=== PATIENT | male | born 1995 | race Hispanic/Latino ===

== ENCOUNTER 2017-02-02 23:57 | Emergency (ER) | payer BC ==
--- NOTE | 2017-02-03 01:08 | C.PDOC ---
History Of Present Illness 21 year old male presents to the ED with complaints of his ear feeling clogged, sore throat, and nausea, for the past few days. Patient states he was seen by his PMD and was given Augmentin and denies fever, chills, vomiting, or any other complaints at this time. Time Seen by Provider: 02/03/17 01:08 Chief Complaint (Nursing): Cough, Cold, Congestion History Per: Patient History/Exam Limitations: no limitations Onset/Duration Of Symptoms: Days Current Symptoms Are (Timing): Still Present Sick Contacts (Context): None Associated Symptoms: Sore Throat. denies: Fever, Cough Ear Symptoms: Bilateral: Ear Fullness Severity: Mild Past Medical History Reviewed: Historical Data, Nursing Documentation, Vital Signs Vital Signs: Last Vital Signs Temp 98.3 F 02/03/17 00:04 Pulse 95 H 02/03/17 00:04 Resp 14 02/03/17 01:30 BP 120/80 02/03/17 01:30 Pulse Ox 99 02/03/17 03:49 - Medical History PMH: No Chronic Diseases Family History: States: Unknown Family Hx - Social History Hx Alcohol Use: Yes Hx Substance Use: Yes - Immunization History Hx Influenza Vaccination: No Review Of Systems Constitutional: Negative for: Fever, Chills ENT: Positive for: Throat Pain, Other (+Clogged ears). Negative for: Ear Discharge Cardiovascular: Negative for: Chest Pain, Palpitations Respiratory: Negative for: Cough, Shortness of Breath Gastrointestinal: Positive for: Nausea. Negative for: Vomiting, Abdominal Pain Musculoskeletal: Negative for: Neck Pain, Back Pain Neurological: Negative for: Weakness, Numbness Physical Exam - Physical Exam Appears: Non-toxic, No Acute Distress Skin: Warm, Dry Head: Atraumatic, Normacephalic, Other (+Frontal sinus pressure) Eye(s): bilateral: Normal Inspection Ear(s): Bilateral: Other (+Bilateral wax to ears) Oral Mucosa: Moist Throat: Erythema, No Exudate, Other (+Swelling to bilateral tonsils) Neck: Supple Chest: Symmetrical Cardiovascular: Rhythm Regular Respiratory: No Accessory Muscle Use, No Rales, No Rhonchi, No Wheezing Extremity: Normal ROM Neurological/Psych: Oriented x3, Normal Speech, Normal Cognition ED Course And Treatment - Laboratory Results Result Diagrams: 02/03/17 01:35 02/03/17 01:35 O2 Sat by Pulse Oximetry: 99 (Room air) Pulse Ox Interpretation: Normal - CT Scan/US Ct Orbits/Facials w/o contrast Other Rad Studies (CT/US): Read By Radiologist, Radiology Report Reviewed CT/US Interpretation: FINDINGS: Orbits: Unremarkable. Sinuses: Unremarkable. No air-fluid levels. Bones/joints: No acute fracture. Soft tissues: Unremarkable. IMPRESSION: Normal orbits CT. Progress Note: CT Orbits/Facials w/o contrast, Blood work, and Flu swab ordered and reviewed. Patient treated with Solu-Medrol, Toradol, and IV fluids. Disposition Counseled Patient/Family Regarding: Studies Performed, Diagnosis, Need For Followup - Disposition Referrals: Maggi Blakely MD [Staff Provider] - Disposition: HOME/ ROUTINE Disposition Time: 01:08 Condition: FAIR Instructions: Pharyngitis (ED), Cerumen Impaction (ED) - Clinical Impression Clinical Impression: Pharyngitis, Cerumen impaction - Scribe Statement The provider has reviewed the documentation as recorded by the Scribe Deanna Desai. Provider Attestation: All medical record entries made by the Scribe were at my direction and personally dictated by me. I have reviewed the chart and agree that the record accurately reflects my personal performance of the history, physical exam, medical decision making, and the department course for this patient. I have also personally directed, reviewed, and agree with the discharge instructions and disposition.
[2017-02-03] MEDS ORDERED: Sodium Chloride 0.9% 1,000 ML IV ONE (01:14)
[2017-02-03] MEDS ORDERED: Sodium Chloride 0.9% 1,000 ML ONE (01:35)
[2017-02-03 01:38] LABS: BASO % 0.5 % (0.0-2.0); HEMATOCRIT 43.7 % (35.0-51.0); LYMPH # 0.8 K/uL (1.0-4.3); LYMPH % 28.8 % (20.0-40.0); MEAN CELL VOLUME 88.3 fL (80.0-94.0); MEAN CORPUSCULAR HEMOGLOBIN 29.7 pg (27.0-31.0); MEAN CORPUSCULAR HGB CONC 33.7 g/dL (33.0-37.0); MEAN PLATELET VOLUME 10.1 fL (7.2-11.7); MONO # 0.4 K/uL (0.0-0.8); MONO % 14.7 % (0.0-10.0); NRBC % 0.1 % (0.0-2.0); RED CELL DISTRIBUTION WIDTH 12.2 % (11.5-14.5); WHITE BLOOD COUNT 2.9 K/uL (4.8-10.8)
[2017-02-03 01:45] LABS: CHLORIDE 96 mmol/L (98-107)
[2017-02-03 01:46] LABS: POTASSIUM 4.5 mmol/L (3.6-5.2); SODIUM 138 mmol/L (132-148)
[2017-02-03 01:48] LABS: BILIRUBIN,TOTAL 1.1 mg/dL (0.2-1.3); CARBON DIOXIDE 29 mmol/L (22-30); GFR AFRICAN-AMERICAN > 60
[2017-02-03 01:49] LABS: ALB/GLOB RATIO 1.5 (1.0-2.1); ALKALINE PHOSPHATASE 84 U/L (38-126); ALT/SGPT 32 U/L (21-72); AST/SGOT 45 U/L (17-59); BLOOD UREA NITROGEN 10 mg/dL (9-20); CALCIUM 8.3 mg/dl (8.6-10.4); GLUCOSE,RANDOM 91 mg/dL (75-110); TOTAL PROTEIN 8.1 g/dL (6.3-8.3)
[2017-02-03] MEDS ORDERED: MethylPREDNISolone 40 mg Vial IVP STA (03:09)
[2017-02-03 04:48] VITALS: BP 112/72; PULSE 78; RESP 20; TEMP 98.2; O2SAT 98
--- NOTE | 2017-02-03 08:52 | CT ---
PROCEDURE: CT ORBITS WITHOUT CONTRAST. HISTORY: pressure COMPARISON: None available. TECHNIQUE: Axial CT images of the orbits were obtained. Coronal and sagittal reformats were generated. Radiation dose: Total exam DLP = 838 mGy-cm. This CT exam was performed using one or more of the following dose reduction techniques: Automated exposure control, adjustment of the mA and/or kV according to patient size, and/or use of iterative reconstruction technique. FINDINGS: RIGHT ORBIT: RIGHT BONY ORBIT: Normal. RIGHT INTRAORBITAL STRUCTURES: Globe: Normal. Extraocular muscles: Normal. Post septal space: Normal. Optic Nerve: Normal. Lacrimal Apparatus: Normal. RIGHT PRESEPTAL SOFT TISSUES: Normal. LEFT ORBIT: LEFT BONY ORBIT: Normal. LEFT INTRAORBITAL STRUCTURES: Globe: Normal. Extraocular muscles: Normal. Post septal space: Normal Optic Nerve: Normal. . Lacrimal Apparatus: Normal. LEFT PRESEPTAL SOFT TISSUES: Normal. OTHER: Nasal septal deviation. Thickening of the right middle and inferior nasal turbinates. IMPRESSION: Negative acute. These findings were preliminarily reported at 2:36 a.m. on 02/03/[address] Grayson Teixeira from [facility].
== END 2017-02-03 04:46 | disposition home or self-care (01) ==
LOC: C.ER 23:57
DX: J02.9 Acute pharyngitis, unspecified (principal); H61.23 Impacted cerumen, bilateral
CPT/HCPCS: 70480; 80053; 85025; 87040; 87804; 96374; 96375; 99284; J1885; J2920; J7040